=== PATIENT | female | born 1990 | race Caucasian/White ===

== ENCOUNTER 2018-11-16 07:32 | Outpatient (CLI) | payer BC ==
--- NOTE | 2018-11-16 07:59 | ULT ---
US Abdomen Limited History: [Diastases recti.. Umbilical hernia.] Comparison: None. Findings: Real-time grayscale evaluation of the abdomen was performed. There is widening of the interspace between the left and right rectus muscles. The overlying aponeuro sis is intact. No hernia. Impression: Diastases recti without ventral hernia.
== END 2018-11-16 07:33 | disposition home or self-care (01) ==
LOC: ULT 07:32
PROVIDERS: ATTEND Physician Assistant
DX: M95.8 Other specified acquired deformities of musculoskeletal system (principal); M62.08 Separation of muscle (nontraumatic), other site
CPT/HCPCS: 76705

== ENCOUNTER 2019-07-22 06:46 | Inpatient (IN) | payer BC ==
[2019-07-22 07:26] VITALS: BMI 27.4
--- NOTE | 2019-07-22 07:49 | PDOC.LDHP ---
Labor and Delivery H&P Chief complaint: contractions HPI: 29 yo WF presents c/o regular UCs q 5 mins since early this AM. Denies ROM. Current gestational age (weeks): 39 Due date: 07/29/19 Dating criteria: last menstrual period Grav: 3 Para: 2 OB History Details: PNC with Dr. Fletcher w/o complications. H/o at term x 2. Current complications: none Current medications: none Previous surgical history: none Allergies/Adverse Reactions: Allergies Allergy/AdvReac Type Severity Reaction Status Date / Time No Known Allergies Allergy Unverified 07/22/19 07:24 Social history: none - Physical Exam Vital signs reviewed and normal: yes General: breathing through contractions Heart: RRR Lungs: CTAB Abdomen: gravid Extremeties: trace edema FHT: category 1 [place] contractions every: q 5 mins - Vaginal Exam cm dilated: 4 Effacement: 90% Station: -1 - OB Labs GBS: negative - Assessment L&D Assessment: term patient in labor - Plan Plan: admit to L&D, informed consent obtained, anesthesia consult for pain management (Dr. Fletcher notified of admit.)
[2019-07-22] MEDS ORDERED: Promethazine HCl 25 MG/ML VIAL IM PRN ×3 (07:51→14:05)
[2019-07-22] MEDS ORDERED: Butorphanol Tartrate 1 MG/ML VIAL SLOW IVP PRN (07:51)
[2019-07-22] MEDS ORDERED: hydrALAZINE 20 MG/ML VIAL SLOW IVP PRN ×2 (07:51→14:05)
[2019-07-22] MEDS ORDERED: Ondansetron PF 4 MG/2 ML Vial IVP PRN ×3 (07:51→14:05)
[2019-07-22] MEDS ORDERED: NS / Oxytocin 40 units/1000ml 1,000 ML IV PRN (07:51)
[2019-07-22] MEDS ORDERED: Ibuprofen 800 MG TAB PO PRN (07:51)
[2019-07-22] MEDS ORDERED: Acetaminophen 500 MG TAB PO PRN (07:51)
[2019-07-22] MEDS ORDERED: Lidocaine 1% (PF) 30 ML VIAL SC PRN (07:51)
[2019-07-22] MEDS ORDERED: NS / Oxytocin 40 units/1000ml 1,000 ML ONE (08:19)
[2019-07-22] MEDS ORDERED: Fentanyl 4 mcg/Bup 0.1% Cadd 100 ML ONE (08:19)
[2019-07-22] MEDS ORDERED: Lidocaine 1% (PF) 30 ML VIAL ONE (08:19)
[2019-07-22] MEDS: Lactated Ringer's 1,000 ML IV SCH ×2 (08:22→08:49)
[2019-07-22 08:34] LABS: Hemoglobin 12.3 g/dL (12.0-16.0); Mean Corpuscular HGB CONC 33.9 g/dL (32.0-36.0); Mean Corpuscular Hemoglobin 27.6 pg (27.0-31.0); Mean Corpuscular Volume 81.3 fL (78.0-98.0); Mean Platelet Volume 7.9 fL (7.4-10.4); Platelet Count 166 thou/uL (130-400); RBC Distribution Width 11.1 % (11.5-14.5); Red Blood Cell (RBC) Count 4.44 mill/uL (4.20-5.40); White Blood Cell (WBC) Count 9.1 thou/uL (4.8-10.8)
[2019-07-22 09:12] LABS: HBSAg Index 0.32 S/CO (0-0.99); Hep B Surf Ag Non-Reactive S/CO (NonReactive); Syphilis Antibody Nonreactive (Nonreactive); Syphilis Antibody Index 0.06 S/CO (<1.00 Non-Reactive)
[2019-07-22] MEDS ORDERED: Lactated Ringer's 500 ML IV PRN (11:07)
[2019-07-22] MEDS ORDERED: Acetaminophen 325 MG TAB PO PRN (11:07)
[2019-07-22] MEDS ORDERED: diphenhydrAMINE 50 MG/ML VIAL IVP PRN (11:07)
[2019-07-22] MEDS ORDERED: Naloxone HCl 0.4 mg/ml Vial IVP PRN ×2 (11:07)
[2019-07-22] MEDS ORDERED: ePHEDrine/0.9% NaCl/PF SYRINGE 50 mg/10 ml SLOW IVP PRN (11:07)
[2019-07-22] MEDS ORDERED: Fentanyl 4 mcg/Bupivacaine 0.1% Cassette 100 ML EPIDURAL SCH (11:15)
[2019-07-22] MEDS ORDERED: Communication Order-Pharmacy FS SCH (11:15)
[2019-07-22] MEDS ORDERED: Preparation H Ointment 28 GM TUBE PR PRN (14:05)
[2019-07-22] MEDS ORDERED: diphenhydrAMINE 25 MG CAP PO PRN (14:05)
[2019-07-22] MEDS ORDERED: Methylergonovine 0.2 MG/ML VIAL IM PRN (14:05)
[2019-07-22] MEDS ORDERED: Misoprostol 200 MCG TAB VAG PRN (14:05)
[2019-07-22] MEDS ORDERED: Lanolin Ointment 7 GM TUBE TOP PRN (14:05)
[2019-07-22] MEDS ORDERED: Bisacodyl 10 MG SUPP PR PRN (14:05)
[2019-07-22] MEDS ORDERED: Milk Of Magnesia 30 ML UDCUP PO PRN (14:05)
[2019-07-22] MEDS ORDERED: Benzocaine-Menthol 82.5 ML CAN TOP PRN (14:05)
[2019-07-22] MEDS ORDERED: NS / Oxytocin 40 units/1000ml 1,000 ML IV SCH (14:15)
--- NOTE | 2019-07-22 14:19 | PDOC.LDPN ---
Labor & Delivery Progress Note - Subjective Subjective: comfortable - Objective Vital signs reviewed and normal: yes General: NAD, resting Uterine fundus: non tender Dilation: 7 Effacement: 90% Station: -1 FHT: category 1 [place] contractions every: 4 AROM: meconium stained fluid Plan: continue plan of care
--- NOTE | 2019-07-22 14:20 | PDOC.OPDEL ---
OB Operative/Delivery Note Delivery Dr/Surgeon: Felisha Pre-Delivery Diagnosis: active labor Weeks gestation: 39 Anesthesia: epidural - Findings A Sex: female Weight: 7 lb 11.282 oz - 1 min: 8 - 5 min: 9 - Additional Findings/Plan Placenta delivered: spontaneous Repaired Obstetrical Laceration: none Estimated blood loss: QBL 230ml Compilations/Other Findings: Blood clots removed from lower uterine segment following delivery. No further significant bleeding noted. Post delivery plan: routine recovery
[2019-07-22] MEDS ORDERED: Misoprostol 200 MCG TAB ONE (15:40)
[2019-07-22] MEDS: Ferrous Sulfate 325 MG TAB PO SCH (17:25)
[2019-07-22] MEDS ORDERED: Zolpidem Tartrate 5 MG TAB PO PRN (18:20)
[2019-07-22] MEDS ORDERED: HYDROcodone/Acetaminophen 5/325 mg Tablet PO PRN ×2 (18:20)
[2019-07-22] MEDS: Ibuprofen 800 MG TAB PO SCH (21:06)
[2019-07-22] MEDS: Docusate Calcium (SURFAK) 240 MG CAP PO SCH (21:06)
[2019-07-23] MEDS: Ibuprofen 800 MG TAB PO SCH ×2 (05:55→14:32)
[2019-07-23] MEDS ORDERED: FLU VACC QS2019-20(6MOS UP)/PF 60 MCG/0.5 ML SYRINGE IM ONE (07:45)
[2019-07-23 07:55] VITALS: TEMP 98.3
--- NOTE | 2019-07-23 08:25 | PDOC.PP ---
Post Progress Note Post Day #: 1 Subjective: Pt is doing well on PPD1. She has minimal lochia. Pain well controlled. She is breast feeding and baby is latching/feeding well. Patient up an ambulatory. She is urinating well and had BM this am. She has no chest pain, shortness of breath or concerns at this time. PO intake tolerated: yes Flatus: yes Ambulation: yes Vital Signs (12 hours) Temp Pulse Resp BP Pulse Ox 07/23/19 07:54 98.3 F 70 20 115/67 97 07/23/19 05:50 98.1 F 68 16 119/77 07/23/19 01:10 98.7 F 76 16 107/66 Weight Weight 165 lb - Physical Examination General: NAD Respiratory: non-labored breathing Abdominal: + bowel sounds, lochia, no distention, appropriately TTP Deviation from normal: 2 cm below umbilicus Extremities: negative homans (B) Skin: no rash Neurological: no gross focal deficits Psychiatric: A&Ox3, normal affect Result Diagrams: 07/22/19 08:17 Additional Labs: Post Labs Blood Type O POSITIVE 07/22/19 08:59 Hep Bs Antigen Non-Reactive S/CO (NonReactive) 07/22/19 08:17 (1) Normal vaginal delivery Code(s): O80 - ENCOUNTER FOR FULL-TERM UNCOMPLICATED DELIVERY Status: Acute - Assessment/Plan PT doing very well PPD1. VSS, afebrile. Baby is breast feeding well. Plan for discharge later this afternoon. Rx for ibuprofen sent. Patient will follow up with out office for 6 week pp visit. Discharge planning discussed with patient. She will call out office for any concerns.
[2019-07-23] MEDS ORDERED: Prenatal Vitamin 1 TAB PO SCH (09:00)
[2019-07-23] MEDS: Docusate Calcium (SURFAK) 240 MG CAP PO SCH (09:25)
[2019-07-23] MEDS: Ferrous Sulfate 325 MG TAB PO SCH (09:25)
[2019-07-23 11:40] VITALS: BP 128/88
[2019-07-23] MEDS ORDERED: Varicella virus, LIVE 0.5 ML VIAL SC ONE (14:05)
[2019-07-23] MEDS ORDERED: Adacel (T-DAP) 0.5 ML SYRINGE IM ONE (14:05)
[2019-07-23] MEDS ORDERED: Measles/Mumps/Rubella 10 MCG/0.5 ML VIAL SC ONE (14:05)
== END 2019-07-23 15:35 | disposition home or self-care (01) | DRG 807 ==
LOC: L&D/OP 06:46 → L&D 08:42 → 3SW 17:15
PROVIDERS: ADMIT Obstetrics & Gynecology; ATTEND Obstetrics & Gynecology
PROC: 10E0XZZ Delivery of Products of Conception, External Approach (ICD-10-PCS; principal; 2019-07-22)
PROC: 10907ZC Drainage of Amniotic Fluid, Therapeutic from Products of Conception, Via Natural or Artificial Opening (ICD-10-PCS; 2019-07-22)
DX: O77.0 Labor and delivery complicated by meconium in amniotic fluid (principal); Z37.0 Single live birth; Z3A.39 39 weeks gestation of pregnancy
CPT/HCPCS: 36415; 51702; 85027; 86780; 86850; 86900; 86901; 87340; 99285; J2001

== ENCOUNTER 2021-05-21 10:56 | Outpatient (CLI) | payer BC | END 2021-05-21 10:57 | disposition home or self-care (01) | LOC: BICRAD 10:56 | PROVIDERS: ATTEND Obstetrics & Gynecology | DX: T83.89XA Other specified complication of genitourinary prosthetic devices, implants and grafts, initial encounter (principal) | CPT/HCPCS: 72170 ==